=== PATIENT | female | born 1960 | race Hispanic/Latino ===

== ENCOUNTER → 2018-11-11 | Outpatient (CLI) | payer BC ==
--- NOTE | 2018-11-12 08:19 | Diagnostic Imaging Report ---
#[id number] - MGSCRBIL #BILATERAL DIGITAL SCREENING MAMMOGRAM WITH CAD: 11/11/2018 CLINICAL: Routine screening. Comparison is made to exams dated: 10/26/2017 mammogram and 10/02/2015 mammogram - [facility]. Current study contains 4 films. There are scattered fibroglandular elements in both breasts. Current study was also evaluated with a Computer Aided Detection (CAD) system. No significant masses, calcifications, or other findings are seen in either breast. There has been no significant interval change. IMPRESSION: BENIGN There is no mammographic evidence of malignancy. A 1 year screening mammogram is recommended. The patient will be notified by letter of the results. James gonzalez/yaron:11/11/2018 13:32:01 Lusterer: Leila PAGAN)(M), [facility] letter sent: Compared to Prior B9 Mammogram BI-RADS: 2 Benign
== END ==
LOC: MAMMO 09:52
PROVIDERS: ATTEND Obstetrics & Gynecology
DX: Z12.31 Encounter for screening mammogram for malignant neoplasm of breast (principal)
CPT/HCPCS: 77067

== ENCOUNTER → 2019-09-20 | Day surgery (SDC) | payer BC ==
[2019-09-16 12:18] LABS: BASOPHILS % 0.2 % (0.0-1.0); EOSINOPHILS % 0.2 % (0.0-6.0); HEMATOCRIT 44.7 % (34.2-44.1); HEMOGLOBIN 14.4 g/dL (12.0-16.0); LYMPHOCYTES # (AUTO) 2.2 (1.0-3.2); LYMPHOCYTES % 22.9 % (18.0-39.1); MEAN CORPUSCULAR HEMOGLOBIN 29.1 pg (28-32); MEAN CORPUSCULAR HGB CONC 32.2 g/dL (31-35); MEAN CORPUSCULAR VOLUME 90.5 fL (81-99); MONOCYTES # (AUTO) 0.6 (0.2-0.8); MONOCYTES % 6.3 % (4.4-11.3); NEUTROPHILS # (AUTO) 6.7 (2.1-6.9); NEUTROPHILS % 69.9 % (38.7-80.0); PLATELET COUNT 261 x10e3/uL (140-360); RED BLOOD COUNT 4.94 x10e6/uL (3.6-5.1); RED CELL DISTRIBUTION WIDTH 13.9 % (11.7-14.4)
[2019-09-16 12:35] LABS: INR 0.94; PROTHROMBIN TIME 13.1 seconds (11.9-14.5)
[2019-09-16 12:36] LABS: PARTIAL THROMBOPLASTIN TIME 28.5 seconds (23.8-35.5)
[2019-09-16 12:47] LABS: BLOOD UREA NITROGEN 13 mg/dL (7-26); BUN/CREATININE RATIO 19 (6-25); CALCIUM 9.8 mg/dL (8.4-10.2); CARBON DIOXIDE 28 mmol/L (22-29); CHLORIDE 103 mmol/L (98-107); CREATININE, SERUM 0.69 mg/dL (0.57-1.11); EST GLOMERULAR FILTRATION RATE > 60 ML/MIN (60-); GLUCOSE 90 mg/dL (74-118); SODIUM 138 mmol/L (136-145)
[~2019-09-20] VITALS: Ht 157.5 cm; Wt 69.9 kg
[~2019-09-20] MED LIST: ADVAIR 100-501 EACH IH; BENZOCAINE 20% SPR 60 ML CAN ONE; DIOVAN160 MG PO; ELIQUIS5 MG PO; FENTANYL CITRATE/PF 100MCG/2 ML INJ ONE; LEVOTHYROXINE50 MCG PO; LIDOCAINE HCL 2% LOCAL INJ 5 ML SDV VIAL INJ ONE; METOPROLOL TART25 MG PO; MIDAZOLAM HCL 2 MG/2 ML VIAL ONE; ONDANSETRON HCL INJ 2MG/ML 2ML 2 MG/ML VIAL ONE; PROPOFOL IV EMULSION 10 MG/ML 20 ML VIAL ONE; SODIUM CHLORIDE 0.9% 1000ML 1,000 ML ONE
[2019-09-20 11:28] VITALS: BP 123/73
--- NOTE | 2019-09-20 11:30 | NUR ---
1130Pt in rm #10 [employer] prep room, prepped for procedure. Alert oriented and appropriate, PERRLA, respirations even and unlabored to room air. Pulses x4 extremities equal and strong. Pedal pulses PT/DP 2+/2+ bilateral. Cap fill brisk < 3 sec. bilateral feet warm to touch. Skin warm and dry integrity appears intact in general. IV Jelco #20x1(Nasrin RN) rt hand started and presents healthy w/o s/s of infiltration or complaint. NS 0.9% started at 75ml/hr. Abdomen soft and supple. pt offered toileting, denies need to urinate or defecate. Personal affects with patient. Family at bedside sister and mother. Pt and family verbalizes understanding of POC. No Pre-Op Meds except iv. Pt voices somewhat anxious reassurance give.Pt for CHELITA with MAC surgical technologist and anesthesia notified ready in holding #10. Has no c/p pain. Hx Paroxamal atrial fib currently in NSR also hx sick sinus syndrome see full hx in chart or nursing assessment procedural hx by Nasrin GUTIÉRREZ.
[2019-09-20 12:55] VITALS: BP 92/52
--- NOTE | 2019-09-20 12:55 | NUR ---
1255pm- pt received from Zafar MERLOS Rn, Edilson AA on escort to room #10, placed on bedside monitoring. Drowsy and responsive to verbal commands.Bite block removed .100% sats on room air. IV site patent to rt hand 800cc Ns in bag iv site patent w/o s/s infiltration. Dr Monteiro spoke with family regarding findings. , VS wnl, NSR Rrythm. Educated family aware no eating for 2hrs.(3pm) Denies c/o at this time.ariel/henrique
--- NOTE | 2019-09-20 12:58 | NUR ---
1226 - pt received for CHELITA/cardioversion, placed on bedside monitoring. pt positioned for procedure. IV site patent to right hand , VS wnl, sinus rhythm (Dr. Pichardo, Dr. Monteiro, Jaylen/echo, Zafar Dorado RN, Charlotte Crook RN, Aiyana Jang RN. 1237 - all responsible staff present, Timeout performed 1237 - hurricaine spray (spray 1) to oral cavity 1238 - hurricaine spray (spray 2) to oral cavity 1239 - bite block positioned and CHELITA probe passed 1247 - agitated saline injected for bubble study 1248 - CHELITA probe removed , no gross trauma or distress observed 12:49- Procedure End 1255 - pt taken to X for further recovery Addendum: 09/20/19 at 1305 by Naty Crook RN Patient taken to [facility] room 10 for recovery
[2019-09-20 13:00] VITALS: BP 104/67
[2019-09-20 13:15] VITALS: BP 106/80
[2019-09-20 13:30] VITALS: BP 113/66
[2019-09-20 13:45] VITALS: BP 113/66
--- NOTE | 2019-09-20 13:45 | NUR ---
1345 Pt meets DC criteria. Oral buccal assessed Back to baseline orientation. No problems. Pt ready for dc aware of importance of f/o care and not to eat or drink till 300pm today. Skin warm, dry, no discolor, and pulses present. IV removed from rt hand. Distal tip appears intact. VS WNL. Pt denies pain, sob, or need at this time. Family at bedside. Review of discharge paperwork and follow up instructions. verbalized understanding. Pt to wheelchair and transported to front of hospital. Transferred to private vehicle under own strength w/o incident with DC paperwork in hand. - ds/rn
== END | disposition home or self-care (01) ==
LOC: CATH LAB 10:55
PROVIDERS: ATTEND Internal Medicine Cardiovascular Disease
DX: I48.0 Paroxysmal atrial fibrillation (principal); I34.0 Nonrheumatic mitral (valve) insufficiency; R07.9 Chest pain, unspecified; R00.2 Palpitations; I10 Essential (primary) hypertension; E78.5 Hyperlipidemia, unspecified; R94.31 Abnormal electrocardiogram [ECG] [EKG]; I49.5 Sick sinus syndrome; I70.219 Atherosclerosis of native arteries of extremities with intermittent claudication, unspecified extremity; K21.9 Gastro-esophageal reflux disease without esophagitis; K76.0 Fatty (change of) liver, not elsewhere classified; E66.01 Morbid (severe) obesity due to excess calories; E03.9 Hypothyroidism, unspecified; F41.0 Panic disorder [episodic paroxysmal anxiety]; Z91.041 Radiographic dye allergy status; Z01.812 Encounter for preprocedural laboratory examination; Z79.02 Long term (current) use of antithrombotics/antiplatelets
CPT/HCPCS: 36415; 80048; 85025; 85610; 85730; 93312; 93320; 93325; J2001; J2250; J2405; J2704; J3010; J7030; 93307

== ENCOUNTER 2020-04-26 06:45 | Emergency (ER) | payer BC ==
[~2020-04-26] VITALS: Ht 157.5 cm; Wt 69.9 kg
[~2020-04-26 06:45] MED LIST changes: -BENZOCAINE 20% SPR 60 ML CAN ONE; -FENTANYL CITRATE/PF 100MCG/2 ML INJ ONE; -LIDOCAINE HCL 2% LOCAL INJ 5 ML SDV VIAL INJ ONE; -MIDAZOLAM HCL 2 MG/2 ML VIAL ONE; -ONDANSETRON HCL INJ 2MG/ML 2ML 2 MG/ML VIAL ONE; -PROPOFOL IV EMULSION 10 MG/ML 20 ML VIAL ONE; -SODIUM CHLORIDE 0.9% 1000ML 1,000 ML ONE
--- OUTSIDE RECORDS SUMMARY | 2020-04-26 06:48 | XMS REPORT | Continuity of Care Document ---
Author Author [facility] t Organization [facility] Address [facility] [address] [place] [address] Phone Unavailable Care Team Providers Care School Coordinator Name Role Phone MARCO CAMP Attphys Unavailable CRISTIAN CHACON Attphyjessica Unavailable Payers Payer Name Policy Type Policy Number Effective Date Expiration Date S ource Problems This patient has no known problems. Allergies, Adverse Reactions, Alerts Allergy Name Allergy Type Status Severity Reaction(s) Onset Date Inacti ve Date Treating Clinician Comments Source iodine DA Active SV 2019-05-17 00:00:00 [facility] iodine DA Active SV 2014-04-03 00:00:00 [facility] Medications This patient has no known medications. Procedures This patient has no known procedures. Results Test Description Test Time Test Comments Results Result Comments Source MAMMOGRAPHY DIGITAL SCR BILAT 2019-11-21 14:46:00 [facility] [address] [place], [place] [address] Patient Name: SCOTTIE GARCIA MR #: [id number] : 1960 Age/Sex: 59/F Req #: [id number] Adm Physician: Ordered by: KELLEY CAMP MD Report #: [id number] Location: MAMMO Room/Bed: Procedure: [id number] MG/MAMMOGRAPHY DIGITAL SCR BILAT Exam Date: 11/21/19 Exam Time: 1409 REPORT STATUS: Signed #[id number] - MGSCRBIL #BILATERAL DIGITAL SCREENING MAMMOGRAM WITH CAD: 11/21/2019 CLINICAL: Routine screening. Comparison is made to exams dated: 11/11/2018 mammogram, 10/26/2017 mammogram, 10/02/2015 mammogram, 10/13/2016 mammogram, 09/08/2014 mammogram and 09/02/2013 mammogram - [facility]. There are scattered fibroglandular elements in both breasts. Current study was also evaluated with a Computer Aided Detection (CAD) system. There are benign lymph nodes in both breasts. No significant masses, calcifications, or other findings are seen in either breast. There has been no significant interval change. IMPRESSION: BENIGN There is no mammographic evidence of malignancy. A 1 year screening mammogram is recommended. The patient will be notified by letter of the results. BUDDY han/yaron:11/30/2019 10:17:07 Business Liaison Manager: Leila PAGAN)(Adelina), [facility] letter sent: Compared to Prior B9 Mammogram BI-RADS: 2 Benign Dictated By: BUDDY GOULD MD 1017 Transcribed By: YARON on 11/30/19 1017 COPY TO: MARCO CAMP MD COAGULATION TIME ACTIVATED 2019-10-22 18:10:00 Test Item COAGULATION TIME ACTIVATED (test code = ACT) 345 seconds 62.8-88.0 H COAGULATION TIME [id number] 18:10:00* Test Item Value Reference Range Interpretation Comments COAGULATION TIME ACTIVATED (test code = ACT) 363 seconds 62.8-88.0 H COAGULATION TIME [id number] 18:10:00* Test Item Value Reference Range Interpretation Comments COAGULATION TIME ACTIVATED (test code = ACT) 362 seconds 62.8-88.0 H COAGULATION TIME [id number] 18:10:00* Test Item Value Reference Range Interpretation Comments COAGULATION TIME ACTIVATED (test code = ACT) 351 seconds 62.8-88.0 H COAGULATION TIME [id number] 18:10:00* Test Item Value Reference Range Interpretation Comments COAGULATION TIME ACTIVATED (test code = ACT) 332 seconds 62.8-88.0 H [id number] 12:57:00* Test Item Value Reference Range Interpretation Comments GLUBED (test code = GLUBED) 172 mg/dL 74-106 H Performed by certified drum dyeing machine operator at [facility] [id number] 05:35:00* Test Item Value Reference Range Interpretation Comments GLUBED (test code = GLUBED) 114 mg/dL 74-106 H Performed by certified drum dyeing machine operator at [facility] [id number] 21:32:00* Test Item Value Reference Range Interpretation Comments GLUBED (test code = GLUBED) 217 mg/dL 74-106 H Performed by certified drum dyeing machine operator at [facility] CBC W/AUTO [id number] 12:28:00* Test Item Value Reference Range Interpretation Comments WHITE BLOOD CELL (test code = WBC) 8.4 K/mm3 4.5-12.5 N RED BLOOD CELL (test code = RBC) 5.09 mill/mm3 3.7-5.2 N HEMOGLOBIN (test code = HGB) 14.7 gram/dL 11.5-15.5 N HEMATOCRIT (test code = HCT) 45.7 % 36.0-46.0 N MEAN CELL VOLUME (test code = MCV) 89.8 fL 80-98 N MEAN CELL HGB (test code = MCH) 28.9 picogram 27.0-33.0 N MEAN CELL HGB CONCETRATION (test code = MCHC) 32.2 gram/dL 33.0-36. 0 L RED CELL DISTRIBUTION WIDTH (test code = RDW) 13.8 % 11.6-16. 2 N RED CELL DISTRIBUTION WIDTH SD (test code = RDW-SD) 45.4 fL 37 .0-51.0 N PLATELET COUNT (test code = PLT) 267 K/mm3 150-450 N MEAN PLATELET VOLUME (test code = MPV) 10.7 fL 6.7-11.0 N NEUTROPHIL % (test code = NT%) 66.4 % 39.0-69.0 N IMMATURE GRANULOCYTE % (test code = IG%) 0.7 % 0.0-5.0 N LYMPHOCYTE % (test code = LY%) 24.8 % 25.0-55.0 L MONOCYTE % (test code = MO%) 7.2 % 0.0-10.0 N EOSINOPHIL % (test code = EO%) 0.5 % 0.0-5.0 N BASOPHIL % (test code = BA%) 0.4 % 0.0-1.0 N NUCLEATED RBC % (test code = NRBC%) 0.0 % 0-0 N NEUTROPHIL # (test code = NT#) 5.60 K/mm3 1.8-7.7 N IMMATURE GRANULOCYTE # (test code = IG#) 0.06 x10 3/uL 0-0.03 H LYMPHOCYTE # (test code = LY#) 2.09 K/mm3 1.0-5.0 N MONOCYTE # (test code = MO#) 0.61 K/mm3 0-0.8 N EOSINOPHIL # (test code = EO#) 0.04 K/mm3 0.0-0.5 N BASOPHIL # (test code = BA#) 0.03 K/mm3 0.0-0.2 N NUCLEATED RBC # (test code = NRBC#) 0.00 K/mm3 0.0-0.1 N MANUAL DIFF REQUIRED (test code = MDIFF) NO CBC W/AUTO [id number] 12:25:00* Test Item Value Reference Range Interpretation Comments WHITE BLOOD CELL (test code = WBC) K/mm3 4.5-12.5 RED BLOOD CELL (test code = RBC) mill/mm3 3.7-5.2 HEMOGLOBIN (test code = HGB) 14.7 gram/dL 11.5-15.5 N HEMATOCRIT (test code = HCT) 45.7 % 36.0-46.0 N MEAN CELL VOLUME (test code = MCV) fL 80-98 MEAN CELL HGB (test code = MCH) picogram 27.0-33.0 MEAN CELL HGB CONCETRATION (test code = MCHC) gram/dL 33.0-36. 0 RED CELL DISTRIBUTION WIDTH (test code = RDW) % 11.6-16. 2 RED CELL DISTRIBUTION WIDTH SD (test code = RDW-SD) fL 37 .0-51.0 PLATELET COUNT (test code = PLT) K/mm3 150-450 MEAN PLATELET VOLUME (test code = MPV) fL 6.7-11.0 NEUTROPHIL % (test code = NT%) % 39.0-69.0 IMMATURE GRANULOCYTE % (test code = IG%) % 0.0-5.0 LYMPHOCYTE % (test code = LY%) % 25.0-55.0 MONOCYTE % (test code = MO%) % 0.0-10.0 EOSINOPHIL % (test code = EO%) % 0.0-5.0 BASOPHIL % (test code = BA%) % 0.0-1.0 NEUTROPHIL # (test code = NT#) K/mm3 1.8-7.7 LYMPHOCYTE # (test code = LY#) K/mm3 1.0-5.0 MONOCYTE # (test code = MO#) K/mm3 0-0.8 EOSINOPHIL # (test code = EO#) K/mm3 0.0-0.5 BASOPHIL # (test code = BA#) K/mm3 0.0-0.2 PROTHROMBIN [id number] 12:24:00* Test Item Value Reference Range Interpretation Comments PROTHROMBIN TIME PATIENT (test code = PTP) 11.8 seconds 9.0-14.0 N INTERNATIONAL NORMAL RATIO (test code = INR) 1.0 0.8-1.2 N The therapeutic range for oral anticoagulant therapy formost indications is an international normalized ratio (INR)of between 2.0 and 3.0. The recommended therapeutic INRrange for various clinical situations is listed below: Clinical Situation INR range Pulmonary e mbolism treatment (2.0-3.0)Venous thrombosis treatmentVenous thrombosis prophylaxis (high risk surgery)Prevention of systemic embolism from: Acute myocardial infarction Valvular heart disease Atrial fibrillation Mechanical prosthetic heart valves (2.5-3.5) THROMBOPLASTIN TIME [id number] 12:24:00* Test Item Value Reference Range Interpretation Comments THROMBOPLASTIN TIME PARTIAL (test code = PTT) 33.3 seconds 25.0-36. 5 N BASIC METABOLIC [id number] 12:20:00* Test Item Value Reference Range Interpretation Comments SODIUM (test code = NA) 142 mmol/L 136-145 N POTASSIUM (test code = K) 4.0 mmol/L 3.5-5.1 N CHLORIDE (test code = CL) 106.0 mmol/L 98-107 N CARBON DIOXIDE (test code = CO2) 30.0 mmol/L 21-32 N ANION GAP (test code = GAP) 10.0 10-20 N GLUCOSE (test code = GLU) 92 mg/dL 74-106 N BLOOD UREA NITROGEN (test code = BUN) 12 mg/dL 7-18 N GLOMERULAR FILTRATION RATE (test code = GFR) > 60 mL/min >=60 Estimated GFR by using Modified MDRD formula.Chronic kidney disease is defined as either kidney damageor GFR <60 mL/min/1.73 m2 for >3 months. CREATININE (test code = CREAT) 0.60 mg/dL 0.55-1.02 N Note change in reference range due to change in reagent. BUN/CREATININE RATIO (test code = BUN/CREA) 19.6 10-20 N CALCIUM (test code = CA) 9.3 mg/dL 8.5-10.1 N BASIC METABOLIC [id number] 12:12:00* Test Item Value Reference Range Interpretation Comments SODIUM (test code = NA) 142 mmol/L 136-145 N POTASSIUM (test code = K) 4.0 mmol/L 3.5-5.1 N CHLORIDE (test code = CL) 106.0 mmol/L 98-107 N CARBON DIOXIDE (test code = CO2) mmol/L 21-32 ANION GAP (test code = GAP) 10-20 GLUCOSE (test code = GLU) mg/dL 74-106 BLOOD UREA NITROGEN (test code = BUN) mg/dL 7-18 GLOMERULAR FILTRATION RATE (test code = GFR) mL/min >=60 CREATININE (test code = CREAT) mg/dL 0.55-1.02 BUN/CREATININE RATIO (test code = BUN/CREA) 10-20 CALCIUM (test code = CA) mg/dL 8.5-10.1 THYROID PROFILE [id number] 14:48:00* Test Item Value Reference Range Interpretation Comments T3 UPTAKE (test code = T3UP) 30.0 % 30.0-40.0 N T4 (THYROXINE) (test code = T4) 13.3 ug/dL 4.5-13.9 N T7 (FREE THYROXINE INDEX) (test code = T7) 3.99 FTI 1.3-5.1 N THYROID STIMULATING HORMONE (test code = TSH) 0.529 uIU/mL 0.36-3.7 4 N TSH REFERENCE RANGES: EUTHYROID: 0.35 - 4.3 mIU/mL HYPO : > 5.5 mIU/mL HYPER : < 0.35 mIU/mL [id number] 05:39:00* Test Item Value Reference Range Interpretation Comments TROPONIN-I (test code = TROPI) <0.015 ng/mL 0-0.045 N [id number] 01:30:00* Test Item Value Reference Range Interpretation Comments TROPONIN-I (test code = TROPI) <0.015 ng/mL 0-0.045 N - CTA [id number] 18:07:00 Name: SCOTTIE GARCIA : 1960 Age/S: 58 / F [address] [facility] Unit #: [id number] Loc: [place] [address] Phys: Juan Mckee MD Acct: [id number] Dis Date: Status: REG ER PHONE #: [phone] Exam Date: 05/17/2019 1741 FAX #: [phone] Reason: CHEST PAIN, TACHYCRADIA R/O PE, DISSECTION EXAMS: CPT CODE: [id number] CTA CHEST 13824 REASON FOR EXAM: CHEST PAIN, TACHYCRADIA R/O PE, DISSECTION EXAM ORDER DATE: 05/17/2019 4:16 PM Ordering MSocrates: Juan Mckee MD PROCEDURE: - CTA CHEST FINDINGS: CT images of the chest were obtained with IV contrast using PE protocol. Reconstructed sagittal and coronal images including 3D reconstructions of the chest were provided for interpretation. Dose reduction techniques were applied. Intravenous contrast: 100cc of Omnipaque 370. The heart size is within normal limits.. No evidence of pericardial effusion The thoracic aorta is unremarkable. No evidence of dissection or aneurysmal dilatation. No filling defect seen within the main or lobar pulmonary arteries to suggest pulmonary embolus No evidence of mediastinal or hilar adenopathy No evidence of pleural effusion IMPRESSION: Atelectasis of the bases at 1807 Reported and signed by: Abdoulaye Roberts M.D. CC: Cristian Chacon; Juan Mckee MD Technologist:Eleanor Kohler CTDI: DLP: Trnscb Date/Time: 05/17/2019 (1806) [email or web address] Orig Print D/T: S: 05/17/2019 (1809) PAGE 1 Signed Report DRUGS OF ABUSE SCREEN [id number] 16:02:00* Test Item Value Reference Range Interpretation Comments URN COCAINE (test code = COCAURN) NEGATIVE NEGATIVE URN CANNABINOIDS (test code = CANNABURN) NEGATIVE NEGATIVE URN AMPHETAMINE (test code = AMPHETURN) NEGATIVE NEGATIVE URN BARBITURATE (test code = BARBITURN) NEGATIVE NEGATIVE URN BENZODIAZEPINE (test code = BENZOURN) NEGATIVE NEGATIVE URN OPIATES (test code = OPIATURN) NEGATIVE NEGATIVE URN PHENCYCLIDINE (PCP) (test code = PHENCURN) NEGATIVE NEGATIV E BASIC METABOLIC [id number] 16:02:00* Test Item Value Reference Range Interpretation Comments SODIUM (test code = NA) 140 mmol/L 135-148 N POTASSIUM (test code = K) 3.8 mmol/L 3.5-5.1 N CHLORIDE (test code = CL) 103 mmol/L 101-109 N CARBON DIOXIDE (test code = CO2) 27.9 mmol/L 21-32 N ANION GAP (test code = GAP) 13 mmol/L 10-20 N GLUCOSE (test code = GLU) 115 mg/dL 74-106 H BLOOD UREA NITROGEN (test code = BUN) 16 mg/dL 3-21 N GLOMERULAR FILTRATION RATE (test code = GFR) > 60 mL/min >=60 Estimated GFR by using Modified MDRD formula.Chronic kidney disease is defined as either kidney damageor GFR <60 mL/min/1.73 m2 for >3 months. CREATININE (test code = CREAT) 0.94 mg/dL 0.55-1.3 N BUN/CREATININE RATIO (test code = BUN/CREA) 17.0 10-20 N CALCIUM (test code = CA) 9.5 mg/dL 8.4-10.2 N HEPATIC FUNCTION [id number] 16:02:00* Test Item Value Reference Range Interpretation Comments TOTAL PROTEIN (test code = PROT) 8.7 g/dL 6.5-8.4 H ALBUMIN (test code = ALB) 3.5 g/dL 3.4-4.8 N GLOBULIN (test code = GLOB) 5.2 G/DL 1-10 N ALBUMIN/GLOBULIN RATIO (test code = A/G) 0.7 RATIO 0.75-1.50 L BILIRUBIN TOTAL (test code = BILT) 0.40 mg/dL 0.0-1.0 N BILIRUBIN DIRECT (test code = BILD) 0.10 mg/dL 0.0-0.30 N SGOT/AST (test code = AST) 36 U/L 6-32 H SGPT/ALT (test code = ALT) 54 U/L 12-78 N N ote: Change in REFERENCE RANGE due to new reagent method. ALKALINE PHOSPHATASE TOTAL (test code = ALKP) 138 U/L 38-126 H CPK-MB [id number] 16:02:00* Test Item Value Reference Range Interpretation Comments CREATINE KINASE (CK) (test code = CK) 176 U/L 26-192 N CKMB (test code = CKMBT) 2.0 ng/mL 0.0-5.0 N RELATIVE % INDEX (test code = REL%) 1.1 % [id number] 16:02:00* Test Item Value Reference Range Interpretation Comments TROPONIN-I (test code = TROPI) <0.015 ng/mL 0.00-0.056 N PROTHROMBIN [id number] 15:57:00* Test Item Value Reference Range Interpretation Comments PROTHROMBIN TIME PATIENT (test code = PTP) 9.7 seconds 9.0-13.0 N INTERNATIONAL NORMAL RATIO (test code = INR) 1.0 0.8-1.2 N The therapeutic range for oral anticoagulant therapy formost indications is an international normalized ratio (INR)of between 2.0 and 3.0. The recommended therapeutic INRrange for various clinical situations is listed below: Clinical Situation INR range Pulmonary e mbolism treatment (2.0-3.0)Venous thrombosis treatmentVenous thrombosis prophylaxis (high risk surgery)Prevention of systemic embolism from: Acute myocardial infarction Valvular heart disease Atrial fibrillation Mechanical prosthetic heart valves (2.5-3.5) IS PATIENT ON ANTICOAGULANTS? NTHROMBOPLASTIN TIME [id number] 15:57:00* Test Item Value Reference Range Interpretation Comments THROMBOPLASTIN TIME PARTIAL (test code = PTT) 25.0 seconds 25.5-34. 3 L Therapeutic Range for patients on Heparin Therapy is 2 to2.5 times their baseline PTT level. IS PATIENT ON ANTICOAGULANTS? [id number] 15:57:00* Test Item Value Reference Range Interpretation Comments D-DIMER (test code = DDIMER) 126 ng/ml < 600 IS PATIENT ON ANTICOAGULANTS? NPROTHROMBIN [id number] 15:56:00* Test Item Value Reference Range Interpretation Comments PROTHROMBIN TIME PATIENT (test code = PTP) 9.7 seconds 9.0-13.0 N INTERNATIONAL NORMAL RATIO (test code = INR) 1.0 0.8-1.2 N The therapeutic range for oral anticoagulant therapy formost indications is an international normalized ratio (INR)of between 2.0 and 3.0. The recommended therapeutic INRrange for various clinical situations is listed below: Clinical Situation INR range Pulmonary e mbolism treatment (2.0-3.0)Venous thrombosis treatmentVenous thrombosis prophylaxis (high risk surgery)Prevention of systemic embolism from: Acute myocardial infarction Valvular heart disease Atrial fibrillation Mechanical prosthetic heart valves (2.5-3.5) IS PATIENT ON ANTICOAGULANTS? NTHROMBOPLASTIN TIME [id number] 15:56:00* Test Item Value Reference Range Interpretation Comments THROMBOPLASTIN TIME PARTIAL (test code = PTT) 25.0 seconds 25.5-34. 3 L Therapeutic Range for patients on Heparin Therapy is 2 to2.5 times their baseline PTT level. IS PATIENT ON ANTICOAGULANTS? [id number] 15:56:00* Test Item Value Reference Range Interpretation Comments D-DIMER (test code = DDIMER) ng/ml < 600 IS PATIENT ON ANTICOAGULANTS? NB-TYPE NATRIURETIC [id number] 15:55:00* Test Item Value Reference Range Interpretation Comments B-TYPE NATRIURETIC PEPTIDE (test code = BNP) 27.8 pg/mL 0-100 N BASIC METABOLIC [id number] 15:47:00* Test Item Value Reference Range Interpretation Comments SODIUM (test code = NA) 140 mmol/L 135-148 N POTASSIUM (test code = K) 3.8 mmol/L 3.5-5.1 N CHLORIDE (test code = CL) 103 mmol/L 101-109 N CARBON DIOXIDE (test code = CO2) 27.9 mmol/L 21-32 N ANION GAP (test code = GAP) 13 mmol/L 10-20 N GLUCOSE (test code = GLU) 115 mg/dL 74-106 H BLOOD UREA NITROGEN (test code = BUN) 16 mg/dL 3-21 N GLOMERULAR FILTRATION RATE (test code = GFR) > 60 mL/min >=60 Estimated GFR by using Modified MDRD formula.Chronic kidney disease is defined as either kidney damageor GFR <60 mL/min/1.73 m2 for >3 months. CREATININE (test code = CREAT) 0.94 mg/dL 0.55-1.3 N BUN/CREATININE RATIO (test code = BUN/CREA) 17.0 10-20 N CALCIUM (test code = CA) 9.5 mg/dL 8.4-10.2 N HEPATIC FUNCTION [id number] 15:47:00* Test Item Value Reference Range Interpretation Comments TOTAL PROTEIN (test code = PROT) gram/dL 6.4-8.2 ALBUMIN (test code = ALB) g/dL 3.4-5.0 GLOBULIN (test code = GLOB) g/dL 2.7-4.2 ALBUMIN/GLOBULIN RATIO (test code = A/G) 0.75-1.50 BILIRUBIN TOTAL (test code = BILT) mg/dL 0.2-1.2 BILIRUBIN DIRECT (test code = BILD) mg/dL 0.0-0.20 SGOT/AST (test code = AST) IUnit/L 15-37 SGPT/ALT (test code = ALT) U/L 10-69 ALKALINE PHOSPHATASE TOTAL (test code = ALKP) IUnit/L 45-117 CPK-MB [id number] 15:47:00* Test Item Value Reference Range Interpretation Comments CREATINE KINASE (CK) (test code = CK) IUnit/L 26-208 CKMB (test code = CKMBT) ng/mL 0-6.0 RELATIVE % INDEX (test code = REL%) % [id number] 15:47:00* Test Item Value Reference Range Interpretation Comments TROPONIN-I (test code = TROPI) ng/mL 0-0.045 CBC W/O [id number] 15:40:00* Test Item Value Reference Range Interpretation Comments WHITE BLOOD CELL (test code = WBC) 7.3 K/mm3 4.5-12.5 N RED BLOOD CELL (test code = RBC) 5.10 mill/mm3 3.7-5.2 N HEMOGLOBIN (test code = HGB) 14.6 gram/dL 11.5-15.5 N HEMATOCRIT (test code = HCT) 45.0 % 36.0-46.0 N MEAN CELL VOLUME (test code = MCV) 88.2 fL 80-98 N MEAN CELL HGB (test code = MCH) 28.6 picogram 27.0-33.0 N MEAN CELL HGB CONCETRATION (test code = MCHC) 32.4 gram/dL 33.0-36. 0 L RED CELL DISTRIBUTION WIDTH (test code = RDW) 13.1 % 11.6-16. 2 N RED CELL DISTRIBUTION WIDTH SD (test code = RDW-SD) 43.0 fL 37 .0-51.0 N PLATELET COUNT (test code = PLT) 285 K/mm3 150-450 N MEAN PLATELET VOLUME (test code = MPV) 10.6 fL 6.7-11.0 N - XR CHEST 1 [id number] 15:40:00 Name: SCOTTIE GARCIA : 1960 Age/S:58 /F [address] [facility] Unit#:[id number] [place]: [place] [address] Phys: Juan Mckee MD Dis Date: PHONE #: [phone] Status: PRE ER FAX #: [phone] Exam Date: 05/17/2019 Reason: CHEST PAIN EXAMS: CPT CODE: [id number] XR CHEST 1 V [id number] REASON FOR EXAM: CHEST PAIN EXAM ORDER DATE: 05/17/2019 3:29 PM Ordering Adelina.Bibiana.: Juan Mckee MD PROCEDURE: - XR CHEST 1 V COMPARISON: FINDINGS: Portable AP frontal view of the chest obtained at 3:34 PM shows clear lungs without evidence of consolidation. There is no evidence of effusion. The heart size is within normal limits. Pulmonary vasculatures are unremarkable. IMPRESSION: No active disease. at 1540 Reported and signed by: Abdoulaye Roberts M.D. CC: Cristian Chacon Manjunath R MD Technologist: Eleanor Kohler Trnscrpt Data: 05/17/2019 (0210) Brennan Orig Print D/T: S: 05/17/2019 (5476) PAGE 1 Signed Report MAMMOGRAPHY DIGITAL SCR [id number] 12:55:00 [facility] [address] [place] [address] Patient Name: SCOTTIE GARCIA MR #: [id number] : 1960 Age/Sex: 58/F Req #: [id number] [facility] Physician: Ordered by: KELLEY CAMP MD Report #: [id number] Location: MAMMO Room/Bed: Procedure: [id number] MG/MAMMOGRAPHY DIGITAL SCR BILAT Exam Date: 11/11/18 Exam Time: 1000 REPORT STATUS: S igned #[id number] - MGSCRBIL #BILATERAL DIGITAL SCREENING MAMMOGRAM W ITH CAD: 11/11/2018 CLINICAL: Routine screening. Comparison is made to exams dated: 10/26/2017 mammogram and 10/02/2015 mammogram - [facility]. Current study contains 4 films. There are scattered fi broglandular elements in both breasts. Current study was also evaluated with a Computer Aided Detection (CAD) system. No significant masses, calcificati ons, or other findings are seen in either breast. There has been no signific ant interval change. IMPRESSION: BENIGN There is no mammographic evidence of malignancy. A 1 year screening mammogram is recommended. The patient will be notified by letter of the results. James gonzalez/yaron:11/11/2018 13:32:01 Business Liaison Manager: Leila Ellington (R)(Adelina), [facility] letter sent: Compared to Prior B9 Mammogram BI-RADS: 2 Benign Dictated By: JAMES MCCLURE DO 1332 Transcribed By: YARON on 11/11/18 1332 COPY TO: MARCO CAMP MD MAMMOGRAPHY DIGITAL SCR BILAT [place] [address] Patient Name: SCOTTIE GARCIA MR #: [id number] : 1 Age/Sex: 57/F Req #: [id number] Adm Physician: Ordered by: CRISTIAN CAHCON MD Report #: [id number] Location: MAMMO Room/ Bed: Procedure: [id number] MG/MAMMOGRAPHY DIGITAL SCR BILAT Exam Date: 10/26/17 Exam Time: 1446 REPO RT STATUS: Signed #[id number] - MGSCRBIL #BILATERAL DIGITAL SCREENING MAMMOGRAM WITH CAD: 10/26/2017 CLINICAL: Routine screening. Comparison is made to exams dated: 10/13/2016 mammogram, 10/02/2015 mammogram and 014 mammogram - [facility]. Current study contains 6 films. There are scattered fibroglandular elements in both breasts. Cur rent study was also evaluated with a Computer Aided Detection (CAD) system. No significant masses, calcifications, or other findings are seen in either [address]. There has been no significant interval change. IMPRESSION: BENIGN There is no mammographic evidence of malignancy. A 1 year screening mammogram is recommended. The patient will be notified by letter of the results. James gonzalez/yaron:11/03/2017 13:10:08 Imag ing Technologist: Leila Mcgill RT(R)(M), [facility] letter sent: Compared to Prior B9 Mammogram BI-RADS: 2 Benign Dictated B y: JAMES MCCLURE DO 1310 Transcribed By: YARON on 11/03/17 1310 COPY TO: CRISTIAN CHACON MD
--- NOTE | 2020-04-26 07:13 | NUR ---
per md order ct brain and c-spine and x ray of right ankle and left elbow
--- NOTE | 2020-04-26 07:22 | NUR ---
per md order norco 5 mg po one time
[2020-04-26] MEDS ORDERED: HYDROCODONE/APAP 5MG-325MG TAB PO ONE (07:30)
--- NOTE | 2020-04-26 07:47 | Emergency Department Note ---
History of Present Illnes History of Present Illness Chief Complaint: Skin Rash or Abscess History of Present Illness This is a 59 year old female mechanical trip and fall did not hit head no loc states she tripped over curb presents with avulsion to left elbow, skin tears left knee and palmar side of left hand and small skin tear to right knee and pain to right ankle states she's concerned because of her lupus. 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 Any updates have been documented here. Past Medical History Recent Fever: No Clinical Suspicion of Infectio: No New/Unexplained Change in Ment: No Past Medical History: Hypertension, A-Fib, Hypothyroidism Other Medical History: lupus Other Surgery: tonsillectomy Social History Smoking Cessation: Never Smoker Counseling Performed: No Alcohol Use: None Any Illegal Drug Use: No TB Exposure/Symptoms: No Physically hurt or threatened: No Family History Family history of heart diseas: No Other Last Tetanus: utd Any Pre-Existing Lines (PICC,: No Is patient up to date on immun: Yes Last Flu: utd Last Pneumovax: ood Review of Systems Review of Systems Constitutional: Reports no symptoms EENTM: Reports no symptoms Cardiovascular: Reports no symptoms Respiratory: Reports no symptoms Gastrointestinal: Reports no symptoms Genitourinary: Reports no symptoms Musculoskeletal: Reports as per HPI; Denies neck pain Integumentary: Reports no symptoms Neurological: Reports no symptoms Psychological: Reports no symptoms Endocrine: Reports no symptoms Hematological/Lymphatic: Reports no symptoms Physical Exam Related Data Allergies: Coded Allergies: Iodine and Iodide Containing Produc (Verified Allergy, Severe, 09/16/19) diffculty breathing Triage Vital Signs Vital Signs Date Time Temp Pulse Resp B/P (MAP) Pulse Ox O2 Delivery O2 Flow Rate FiO2 04/26/20 06:47 98.5 54 18 162/76 100 Physical Exam CONSTITUTIONAL Constitutional: Reports well-developed, Reports well-nourished HENT HENT: Reports normocephalic, Reports atraumatic, Reports oropharynx clear/moist, Reports nose normal HENT L/R: Reports left ext ear normal, Reports right ext ear normal EYES Eyes: Reports PERRL, Reports conjunctivae normal NECK Neck: Reports ROM normal PULMONARY Pulmonary: Reports effort normal, Reports breath sounds normal CARDIOVASCULAR Cardiovascular: Reports regular rhythm, Reports heart sounds normal, Reports capillary refill normal, Reports normal rate GASTROINTESTINAL Abdominal: Reports soft, Reports nontender, Reports bowel sounds normal GENITOURINARY Genitourinary: Reports exam deferred SKIN Skin: Reports warm, Reports dry MUSCULOSKELETAL Musculoskeletal: Reports other (skin tears to left elbow, left knee. Abrasions to palmar left hand, right knee. Mild swelling and tenderness to lateral right ankle) NEUROLOGICAL Neurological: Reports alert, Reports oriented x 3, Reports no gross motor or sensory deficits PSYCHOLOGICAL Psychological: Reports mood/affect normal, Reports judgement normal Results Imaging Imaging results reviewed: Yes Impressions Procedure: [id number] DX/ELBOW LEFT COMPLETE Exam Date: 04/26/20 Exam Time: 744 REPORT STATUS: Signed EXAMINATION: ELBOW LEFT COMPLETE INDICATION: Fall COMPARISON: None FINDINGS: No acute fracture or dislocation. Alignment is anatomic. No substantial elbow joint effusion. Soft tissues appear unremarkable. IMPRESSION: No acute osseous injury. Signed by: Sp Torres MD on 04/26/2020 8:17 AM Procedure: [id number] DX/ANKLE 3 + VIEWS RIGHT Exam Date: 04/26/20 Exam Time: 45 REPORT STATUS: Signed EXAMINATION: ANKLE 3 + VIEWS RIGHT INDICATION: Fall COMPARISON: None FINDINGS: No acute fracture or dislocation. Alignment is anatomic. Soft tissues appear unremarkable. Tiny radiopaque focus adjacent to the medial malleolus may be related to remote injury. No substantial ankle joint effusion. Mild scattered atherosclerotic arterial calcifications. IMPRESSION: No acute osseous injury. Signed by: Sp Torres MD on 04/26/2020 8:19 AM Procedure: [id number] CT/CT CERVICAL SPINE WO Exam Date: 04/26/20 Exam Time: 745 REPORT STATUS: Signed CT CERVICAL SPINE WO HISTORY: Trauma COMPARISON: None. TECHNIQUE: CT of the cervical spine without contrast. Sagittal and coronal reformations were created. One or more of the following dose reduction techniques were used: Automated exposure control, adjustment of the mA and/or kV according to patient size, and/or utilization of iterative reconstruction technique. FINDINGS: Cervical lordosis is preserved. There is no scoliosis or subluxation. No fractures, compression deformity, or destructive osseous lesions are seen. The craniocervical junction is intact. No gross spinal canal masses are seen. The paravertebral and paraspinal soft tissues are unremarkable. There is minimal spondylosis at C3-C4. IMPRESSION: No acute osseous abnormalities. Signed by: Dr. Arcenio Wei M.D. on 04/26/2020 8:21 AM Procedure: [id number] CT/CT BRAIN WO Exam Date: 04/26/20 Exam Time: 745 REPORT STATUS: Signed CT BRAIN WO HISTORY: Trauma COMPARISON: None. TECHNIQUE: Noncontrast axial scans were obtained from skull base to the vertex. Coronal and sagittal reconstructions obtained from the axial data. One or more of the following dose reduction techniques were used: Automated exposure control, adjustment of the mA and/or kV according to patient size, and/or utilization of iterative reconstruction technique. DISCUSSION: Scalp/Skull: Unremarkable. Brain sulci: Appropriate for patient's age. Ventricles: Normal in size and configuration. No hydrocephalus. Extra-axial spaces: No masses or fluid collections. Mild carotid siphon calcifications. Parenchyma: No abnormal densities. No mass, hemorrhage, or large vascular territory acute infarct. Dural sinuses: No abnormal densities. Sellar/Suprasellar region: Intact. Skull base: Intact. Incidental findings: None. IMPRESSION: No acute intracranial abnormalities. Signed by: Dr. Arcenio Wei M.D. on 04/26/2020 8:17 AM Assessment & Plan Medical Decision Making MDM mechanical fall, on Eliquis - check xrays left elbow, right ankle, CT head & c- spine - r/o fx, r/o cerebral bleed, cervical fx's Reassessment Reassessment xrays, CT's negative. Skin tears (with very thin skin, pt on Prednisone chronically for SLE) cleansed with Betadine and copious saline then steri-strips applied. DC home on Keflex, F/U PCP Assessment & Plan Final Impression: (1) Fall (2) Abrasions of multiple sites (3) Skin tear (4) Contusion Depart Disposition: HOME, SELF-CARE Last Vital Signs Date Time Temp Pulse Resp B/P (MAP) Pulse Ox O2 Delivery O2 Flow Rate FiO2 04/26/20 06:54 52 16 155/77 98 04/26/20 06:47 98.5 Home Meds Reported Medications Metoprolol Tartrate (METOPROLOL TARTRATE) 25 Mg Tablet, 12.5 MG PO, TAB 09/16/19 Fluticasone/Salmeterol (ADVAIR 100-50 DISKUS) 1 Each Disk.w.dev, 2 INH IH DAILY 09/16/19 Levothyroxine Sodium (LEVOTHYROXINE SODIUM) 50 Mcg Tablet, 50 MCG PO DAILY, #30 TAB 09/16/19 Apixaban (Eliquis) 5 Mg Tablet, 1 TAB PO DAILY 09/16/19 Valsartan (DIOVAN) 160 Mg Tab, 160 MG PO DAILY, #60 TAB 09/16/19 Medications in the ED Acetaminophen/ Hydrocodone Bitart 1 ea ONCE ONCE PO ; Start 04/26/20 at 07:30; Stop 04/26/20 at 07:31; Status UNV MADDI FUENTES MD Apr 26, 2020 07:47
[2020-04-26 07:59] VITALS: BP 155/77
--- NOTE | 2020-04-26 08:20 | Diagnostic Imaging Report ---
EXAMINATION: ELBOW LEFT COMPLETE INDICATION: Fall COMPARISON: None FINDINGS: No acute fracture or dislocation. Alignment is anatomic. No substantial elbow joint effusion. Soft tissues appear unremarkable. IMPRESSION: No acute osseous injury. Signed by: Sp Torres MD on 04/26/2020 8:17 AM
--- NOTE | 2020-04-26 08:21 | Diagnostic Imaging Report ---
CT BRAIN WO HISTORY: Trauma COMPARISON: None. TECHNIQUE: Noncontrast axial scans were obtained from skull base to the vertex. Coronal and sagittal reconstructions obtained from the axial data. One or more of the following dose reduction techniques were used: Automated exposure control, adjustment of the mA and/or kV according to patient size, and/or utilization of iterative reconstruction technique. DISCUSSION: Scalp/Skull: Unremarkable. Brain sulci: Appropriate for patient's age. Ventricles: Normal in size and configuration. No hydrocephalus. Extra-axial spaces: No masses or fluid collections. Mild carotid siphon calcifications. Parenchyma: No abnormal densities. No mass, hemorrhage, or large vascular territory acute infarct. Dural sinuses: No abnormal densities. Sellar/Suprasellar region: Intact. Skull base: Intact. Incidental findings: None. IMPRESSION: No acute intracranial abnormalities. Signed by: Dr. Arcenio Wei M.D. on 04/26/2020 8:17 AM
--- NOTE | 2020-04-26 08:23 | Diagnostic Imaging Report ---
EXAMINATION: ANKLE 3 + VIEWS RIGHT INDICATION: Fall COMPARISON: None FINDINGS: No acute fracture or dislocation. Alignment is anatomic. Soft tissues appear unremarkable. Tiny radiopaque focus adjacent to the medial malleolus may be related to remote injury. No substantial ankle joint effusion. Mild scattered atherosclerotic arterial calcifications. IMPRESSION: No acute osseous injury. Signed by: Sp Torres MD on 04/26/2020 8:19 AM
--- NOTE | 2020-04-26 08:24 | Diagnostic Imaging Report ---
CT CERVICAL SPINE WO HISTORY: Trauma COMPARISON: None. TECHNIQUE: CT of the cervical spine without contrast. Sagittal and coronal reformations were created. One or more of the following dose reduction techniques were used: Automated exposure control, adjustment of the mA and/or kV according to patient size, and/or utilization of iterative reconstruction technique. FINDINGS: Cervical lordosis is preserved. There is no scoliosis or subluxation. No fractures, compression deformity, or destructive osseous lesions are seen. The craniocervical junction is intact. No gross spinal canal masses are seen. The paravertebral and paraspinal soft tissues are unremarkable. There is minimal spondylosis at C3-C4. IMPRESSION: No acute osseous abnormalities. Signed by: Dr. Arcenio Wei M.D. on 04/26/2020 8:21 AM
[2020-04-26] MEDS ORDERED: TETANUS/DIPHTHERIA TOX ADULT 0.5 ML SYR IM ONE (08:45)
== END 2020-04-26 08:47 | disposition home or self-care (01) ==
LOC: ER 06:45
DX: S50.02XA Contusion of left elbow, initial encounter (principal); S00.83XA Contusion of other part of head, initial encounter; M54.2 Cervicalgia; S61.412A Laceration without foreign body of left hand, initial encounter; S81.011A Laceration without foreign body, right knee, initial encounter; S80.02XA Contusion of left knee, initial encounter; M25.571 Pain in right ankle and joints of right foot; W01.0XXA Fall on same level from slipping, tripping and stumbling without subsequent striking against object, initial encounter; Y93.01 Activity, walking, marching and hiking; Y92.89 Other specified places as the place of occurrence of the external cause; M32.9 Systemic lupus erythematosus, unspecified; I10 Essential (primary) hypertension; I48.91 Unspecified atrial fibrillation; E03.9 Hypothyroidism, unspecified
CPT/HCPCS: 70450; 72125; 90471; 90714; 99284

== ENCOUNTER → 2020-12-04 | Outpatient (CLI) | payer BC | LOC: MAMMO 09:22 | PROVIDERS: ATTEND Internal Medicine | DX: Z12.31 Encounter for screening mammogram for malignant neoplasm of breast (principal) | CPT/HCPCS: 77067 ==

== ENCOUNTER → 2022-04-15 | Outpatient (CLI) | payer BC | LOC: MAMMO 12:27 | PROVIDERS: ATTEND Internal Medicine | DX: Z12.31 Encounter for screening mammogram for malignant neoplasm of breast (principal) | CPT/HCPCS: 77067 ==

== ENCOUNTER → 2023-05-04 | Outpatient (CLI) | payer BC | LOC: MAMMO 12:58 | PROVIDERS: ATTEND Internal Medicine | DX: Z12.31 Encounter for screening mammogram for malignant neoplasm of breast (principal) | CPT/HCPCS: 77067 ==